=== PATIENT | male | born 1990 | race American Indian/Alaskan Native ===

== ENCOUNTER 2017-03-22 22:51 | Observation (INO) | payer OTHER ==
[2017-03-22 23:10] VITALS: RESP 20
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
[2017-03-23 04:47] VITALS: BP 126/70; PULSE 70; TEMP 98.2; O2SAT 99
[2017-03-23] MEDS ORDERED: Acetaminophen 160 mg/5 ml elixir (120 ml) ONE (07:36)
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
== END 2017-03-24 04:41 | disposition home or self-care (01) ==
LOC: C.ER 22:51 → C.9OBSV 23:44
PROVIDERS: ADMIT Emergency Medicine; ATTEND Emergency Medicine
DX: F10.129 Alcohol abuse with intoxication, unspecified (principal); S00.83XA Contusion of other part of head, initial encounter; Y04.0XXA Assault by unarmed brawl or fight, initial encounter
CPT/HCPCS: 70450; 70480; 82948; 99284; G0378